=== PATIENT | female | born 1930 | race Caucasian/White ===

== ENCOUNTER 2018-10-20 14:14 | Emergency (ER) | payer OTHER ==
[2018-10-20 17:00] LABS: Urine Bacteria <20 /HPF (<20); Urine Culture Reflex Order NOT NEEDED; Urine RBC NONE SEEN /HPF (NONE SEEN)
[2018-10-20 17:57] LABS: Urine Blood NEGATIVE (NEG); Urine Glucose NEGATIVE (NEG); Urine Protein 2+ (NEG); Urine Specific Gravity 1.005 (1.005-1.030)
--- NOTE | 2018-10-20 20:35 | ER ---
Nurse's Notes [facility] Name: Steph Nava Age: 88 yrs Sex: Female : 1930 Arrival Date: 10/20/2018 Time: 14:17 Bed 18 Private MD: Diagnosis: Dysuria;Diarrhea, unspecified Presentation: 10/20 14:19 Presenting complaint: Patient states: "yesterday I started having bladder trouble, pain aj1 with urinating and I got sick at my stomach. I tried to doctor myself, but it didn't do any good". Transition of care: patient was not received from another setting of care. Onset of symptoms was October 19, 2018. Risk Assessment: Do you want to hurt yourself or someone else? Patient reports no desire to harm self or others. Initial Sepsis Screen: Does the patient meet any 2 criteria? No. Patient's initial sepsis screen is negative. Does the patient have a suspected source of infection? Yes: Dysuria/Frequency/Urgency/UTI. Care prior to arrival: None. 14:19 Method Of Arrival: Wheelchair aj1 14:19 Acuity: THOMAS 4 aj1 Triage Assessment: 14:25 General: Appears in no apparent distress. uncomfortable, Behavior is calm, cooperative, aj1 appropriate for age. Pain: Complains of pain in back and pelvis Pain currently is 7 out of 10 on a pain scale. Neuro: Level of Consciousness is awake, alert, obeys commands, Oriented to person, place, time, situation. Cardiovascular: Patient's skin is warm and dry. Respiratory: Airway is patent Respiratory effort is even, unlabored, Respiratory pattern is regular, symmetrical. : Reports burning with urination. Historical: - Allergies: 14:25 No Known Allergies; aj1 - Home Meds: 14:25 Nexium 40 mg Oral cpDR 1 cap as needed [Active]; isosorbide mononitrate 30 mg Oral Tb24 aj1 1 tab once daily [Active]; doxazosin 4 mg oral tab 1 tab once daily [Active]; amlodipine 10 mg tab 1 tab once daily [Active]; hydralazine 50 mg Oral tab 1 tab 2 times per day [Active]; tamsulosin 0.4 mg oral cp24 1 cap once daily [Active]; rosuvastatin 5 mg oral tab 1 tab once daily [Active]; telemisartan 40 mg daily [Active]; glipizide 5 mg Oral tr24 1 tab twice daily [Active]; clonidine HCl 0.2 mg Oral tab 1 tab 3 times per day [Active]; clopidogrel 75 mg oral tab 1 tab once daily [Active]; carvedilol 3.125 mg oral tab 1 tab every 12 hours [Active]; - PMHx: 14:25 Hypertension; Hyperlipidemia; Diabetes - NIDDM; blind in one eye; aj1 - Immunization history:: Flu vaccine is up to date. - Social history:: Smoking status: Patient/guardian denies using tobacco. - Ebola Screening: : Patient denies travel to an Ebola-affected area in the 21 days before illness onset. Screenin:57 Abuse screen: Denies threats or abuse. Denies injuries from another. Nutritional ph screening: No deficits noted. Tuberculosis screening: No symptoms or risk factors identified. Fall Risk None identified. Assessment: 16:15 General: Appears in no apparent distress. comfortable, well groomed, Behavior is calm, ph cooperative, appropriate for age. Pain: Complains of pain in pelvis. Neuro: Level of Consciousness is awake, alert, obeys commands, Oriented to person, place, time, situation. Cardiovascular: Capillary refill < 3 seconds in bilateral fingers Patient's skin is warm and dry. Respiratory: Airway is patent Respiratory effort is even, unlabored, Respiratory pattern is regular, symmetrical. GI: Reports diarrhea, Patient currently denies nausea, vomiting. : Reports burning with urination, pain in suprapubic area urinary frequency. Derm: Skin is intact, Skin is pink, warm \\T\\ dry. Musculoskeletal: Circulation, motion, and sensation intact. Range of motion: intact in all extremities. 17:00 Reassessment: Patient appears in no apparent distress at this time. Patient and/or ph family updated on plan of care and expected duration. Pain level reassessed. Patient is alert, oriented x 3, equal unlabored respirations, skin warm/dry/pink. Pt assisted to restroom by electrical cad technician, urine sample obtained. 18:00 Reassessment: Patient appears in no apparent distress at this time. Patient and/or ph family updated on plan of care and expected duration. Pain level reassessed. Patient is alert, oriented x 3, equal unlabored respirations, skin warm/dry/pink. Pt resting quietly, VSS. Vital Signs: 14:25 BP 140 / 67; Pulse 63; Resp 18; Temp 97.2; Pulse Ox 98% on R/A; Weight 61.69 kg (R); aj1 Height 5 ft. 0 in. (152.40 cm) (R); Pain 7/10; 16:30 BP 142 / 72; Pulse 64; Resp 18; Pulse Ox 99% on R/A; ph 18:00 BP 132 / 68; Pulse 61; Resp 16; Pulse Ox 99% on R/A; ph 19:00 BP 139 / 66; Pulse 63; Resp 16; Temp 97.5; Pulse Ox 99% on R/A; ph 14:25 Body Mass Index 26.56 (61.69 kg, 152.40 cm) [facility] ED Course: 14:17 Patient arrived in ED. as 14:21 Triage completed. aj1 14:25 Arm band placed on Patient placed in waiting room, Patient notified of wait time. aj1 15:51 Gerardo Calvo PA is PHCP. [facility] 15:51 Chema Hughes MD is Attending Physician. [facility] 16:01 Brenda Goodson, VIVI is Primary Nurse. ph 16:31 Assisted to bathroom. ms 16:58 Patient has correct armband on for positive identification. Bed in low position. Call ph light in reach. Side rails up X 1. Pulse ox on. NIBP on. Door closed. Noise minimized. Warm blanket given. Head of bed elevated. 19:07 No provider procedures requiring assistance completed. Patient did not have IV access ph during this emergency room visit. Administered Medications: No medications were administered Outcome: 18:49 Discharge ordered by . [facility] 19:07 Patient left the ED. ph 19:07 Discharged to home via wheelchair, with family. ph 19:07 Condition: good 19:07 Discharge instructions given to patient, family, Instructed on discharge instructions, follow up and referral plans. medication usage, Demonstrated understanding of instructions, follow-up care, medications, Prescriptions given X 2. Signatures: Gloria Deleon RN RN aj1 Brianna Willis Maria ms Gerardo Calvo PA PA jr8 Brenda Goodson RN RN ph Corrections: (The following items were deleted from the chart) 19:29 16:15 GI: Patient currently denies diarrhea, nausea, vomiting, ph ph
--- NOTE | 2018-10-20 20:35 | EDPHYS ---
Physician Documentation [facility] Name: Steph Nava Age: 88 yrs Sex: Female : 1930 Arrival Date: 10/20/2018 Time: 14:17 Bed 18 Private MD: ED Physician Chema Hughes HPI: 10/20 16:22 This 88 yrs old Female presents to ER via Wheelchair with complaints of jr8 Urinary Problem. 16:22 The patient presents with urinary symptoms, dysuria, frequency, urgency. Onset: The jr8 symptoms/episode began/occurred acutely, yesterday. Modifying factors: The symptoms are alleviated by nothing, the symptoms are aggravated by urinating. Associated signs and symptoms: The patient has no apparent associated signs or symptoms. Severity of symptoms: At their worst the symptoms were mild, in the emergency department the symptoms are unchanged. The patient has experienced similar episodes in the past, a few times. The patient has not recently seen a physician. History of UTI in past and feels that she has another one . Historical: - Allergies: 14:25 No Known Allergies; aj1 - Home Meds: 14:25 Nexium 40 mg Oral cpDR 1 cap as needed [Active]; isosorbide mononitrate 30 mg Oral Tb24 aj1 1 tab once daily [Active]; doxazosin 4 mg oral tab 1 tab once daily [Active]; amlodipine 10 mg tab 1 tab once daily [Active]; hydralazine 50 mg Oral tab 1 tab 2 times per day [Active]; tamsulosin 0.4 mg oral cp24 1 cap once daily [Active]; rosuvastatin 5 mg oral tab 1 tab once daily [Active]; telemisartan 40 mg daily [Active]; glipizide 5 mg Oral tr24 1 tab twice daily [Active]; clonidine HCl 0.2 mg Oral tab 1 tab 3 times per day [Active]; clopidogrel 75 mg oral tab 1 tab once daily [Active]; carvedilol 3.125 mg oral tab 1 tab every 12 hours [Active]; - PMHx: 14:25 Hypertension; Hyperlipidemia; Diabetes - NIDDM; blind in one eye; aj1 - Immunization history:: Flu vaccine is up to date. - Social history:: Smoking status: Patient/guardian denies using tobacco. - Ebola Screening: : Patient denies travel to an Ebola-affected area in the 21 days before illness onset. ROS: 16:22 Eyes: Negative for injury, pain, redness, and discharge, ENT: Negative for injury, jr8 pain, and discharge, Neck: Negative for injury, pain, and swelling, Cardiovascular: Negative for chest pain, palpitations, and edema, Respiratory: Negative for shortness of breath, cough, wheezing, and pleuritic chest pain, Abdomen/GI: Negative for abdominal pain, nausea, vomiting, diarrhea, and constipation, Back: Negative for injury and pain, MS/Extremity: Negative for injury and deformity, Skin: Negative for injury, rash, and discoloration, Neuro: Negative for headache, weakness, numbness, tingling, and seizure. 16:22 : Positive for urinary symptoms. Exam: 16:22 Eyes: Pupils equal round and reactive to light, extra-ocular motions intact. Lids and jr8 lashes normal. Conjunctiva and sclera are non-icteric and not injected. Cornea within normal limits. Periorbital areas with no swelling, redness, or edema. ENT: Nares patent. No nasal discharge, no septal abnormalities noted. Tympanic membranes are normal and external auditory canals are clear. Oropharynx with no redness, swelling, or masses, exudates, or evidence of obstruction, uvula midline. Mucous membranes moist. Neck: Trachea midline, no thyromegaly or masses palpated, and no cervical lymphadenopathy. Supple, full range of motion without nuchal rigidity, or vertebral point tenderness. No Meningismus. Cardiovascular: Regular rate and rhythm with a normal S1 and S2. No gallops, murmurs, or rubs. Normal PMI, no JVD. No pulse deficits. Respiratory: Lungs have equal breath sounds bilaterally, clear to auscultation and percussion. No rales, rhonchi or wheezes noted. No increased work of breathing, no retractions or nasal flaring. Abdomen/GI: Soft with mild suprapubic tenderness with normal bowel sounds. No distension or tympany. No guarding or rebound. No evidence of tenderness throughout. Back: No spinal tenderness. No costovertebral tenderness. Full range of motion. Skin: Warm, dry with normal turgor. Normal color with no rashes, no lesions, and no evidence of cellulitis. MS/ Extremity: Pulses equal, no cyanosis. Neurovascular intact. Full, normal range of motion. Neuro: Awake and alert, GCS 15, oriented to person, place, time, and situation. Cranial nerves II-XII grossly intact. Motor strength 5/5 in all extremities. Sensory grossly intact. Cerebellar exam normal. Normal gait. Vital Signs: 14:25 BP 140 / 67; Pulse 63; Resp 18; Temp 97.2; Pulse Ox 98% on R/A; Weight 61.69 kg (R); aj1 Height 5 ft. 0 in. (152.40 cm) (R); Pain 7/10; 16:30 BP 142 / 72; Pulse 64; Resp 18; Pulse Ox 99% on R/A; ph 18:00 BP 132 / 68; Pulse 61; Resp 16; Pulse Ox 99% on R/A; ph 19:00 BP 139 / 66; Pulse 63; Resp 16; Temp 97.5; Pulse Ox 99% on R/A; ph 14:25 Body Mass Index 26.56 (61.69 kg, 152.40 cm) aj1 MDM: 15:51 Patient medically screened. jr8 18:47 Data reviewed: vital signs, nurses notes, lab test result(s). Data interpreted: Pulse jr8 oximetry: on room air is 98 %. Interpretation: normal. Counseling: I had a detailed discussion with the patient and/or guardian regarding: the historical points, exam findings, and any diagnostic results supporting the discharge/admit diagnosis, lab results, the need for outpatient follow up, a family practitioner, to return to the emergency department if symptoms worsen or persist or if there are any questions or concerns that arise at home. ED course: Negative urine. Patient had mild lower abdominal tenderness upon palpation to lower abdomen with diarrhea. Discussed colitis, or diverticulitis as differential and why she may be hurting. Recommended labs and possibly CT to further r/o causes of pain but patient wants to wait and see how she does. Will put her on antibiotics to cover for colon infection. 10/20 15:21 Order name: Urine Culture [facility] 10/20 15:21 Order name: Urine Microscopic Only; Complete Time: 18:52 [facility] 10/20 15:21 Order name: Urine Dipstick-Ancillary (obtain specimen); Complete Time: 16:31 [facility] 10/20 16:31 Order name: Urine Dipstick--Ancillary (enter results) 10/20 18:42 Order name: Urine Dipstick-Ancillary EDMS Administered Medications: No medications were administered Disposition: 10/21 13:53 Co-signature as Attending Physician, Chema Hughes MD I agree with the assessment and kdr plan of care. Disposition: 10/20/18 18:49 Discharged to Home. Impression: Dysuria, Diarrhea, unspecified. - Condition is Stable. - Discharge Instructions: Diarrhea, Adult, Diverticulitis, Dysuria. - Prescriptions for Cipro 500 mg Oral Tablet - take 1 tablet by ORAL route every 12 hours for 7 days; 14 tablet. Flagyl 500 mg Oral Tablet - take 1 tablet by ORAL route every 6 hours for 7 days; 28 tablet. - Medication Reconciliation Form, Thank You Letter, Antibiotic Education, Prescription Opioid Use form. - Follow up: Private Physician; When: 2 - 3 days; Reason: Recheck today's complaints, Continuance of care, Re-evaluation by your physician. - Problem is new. - Symptoms have improved. Signatures: Dispatcher [employer] EDMS Gloria Deleon, RN RN aj1 Chema Hughes MD MD kdr Joyce Lopez, SPIRAL RUNNER-C SPIRAL RUNNER-[employer] Gerardo Calvo PA PA jr8 Brenda Goodson RN RN ph Corrections: (The following items were deleted from the chart) 10/20 19:07 18:49 10/20/2018 18:49 Discharged to Home. Impression: Dysuria; Diarrhea, unspecified. ph Condition is Stable. Forms are Medication Reconciliation Form, Thank You Letter, Antibiotic Education, Prescription Opioid Use. Follow up: Private Physician; When: 2 - 3 days; Reason: Recheck today's complaints, Continuance of care, Re-evaluation by your physician. Problem is new. Symptoms have improved. jr8
== END 2018-10-20 19:07 | disposition home or self-care (01) ==
LOC: ER 14:14
DX: R19.7 Diarrhea, unspecified (principal); I10 Essential (primary) hypertension; E78.5 Hyperlipidemia, unspecified; E11.9 Type 2 diabetes mellitus without complications
CPT/HCPCS: 81003; 81015; 87086; 87088; 99283